=== PATIENT | male | born 1980 | race Caucasian/White ===

== ENCOUNTER → 2016-08-06 | Outpatient (CLI) | payer OTHER ==
--- NOTE | 2016-08-06 15:00 | REP ---
THORACIC SPINE SERIES: Four views. HISTORY: Back injury. FINDINGS: Thoracic vertebral body heights are preserved and alignment is normal. Pedicles and posterior elements are intact. No paravertebral soft-tissue mass or hematoma is seen. Swimmer's lateral view shows no additional abnormality. IMPRESSION: Negative thoracic spine views. Signed by Julio Shields MD 08/06/2016 03:01 P
--- NOTE | 2016-08-06 15:01 | REP ---
LUMBAR SPINE SERIES: Five views. HISTORY: Back injury. Injury in a slip and fall. No comparison views. FINDINGS: The patient is status post unilateral right-sided transpedicular screw placement at the L4 and L5 levels with dorsal interconnecting fusion vickie and an interbody fusion device placed at the 4-5 disc level. Lumbar vertebral body heights are preserved. Alignment is normal. No fracture or collapse is seen. Disc spaces are maintained. No fracture is seen. Psoas margins are symmetric. Sacrum and SI joints are unremarkable. The visualized bowel gas pattern is normal. No sacral fracture is seen. IMPRESSION: Status post for L4-5 fusion procedure. No fracture or other acute bony abnormality. Signed by Julio Shields MD 08/06/2016 03:02 P
== END ==
LOC: M LRY 13:47
PROVIDERS: ATTEND Nurse Practitioner Family
DX: S39.92XA Unspecified injury of lower back, initial encounter (principal); W19.XXXA Unspecified fall, initial encounter; Y92.9 Unspecified place or not applicable; Y93.9 Activity, unspecified; Y99.9 Unspecified external cause status; M43.26 Fusion of spine, lumbar region
CPT/HCPCS: 72070; 72110; 96372; G0463; J1885

== ENCOUNTER 2016-12-17 07:36 | Emergency (ER) | payer OTHER ==
[~2016-12-17] VITALS: Ht 175.3 cm; Wt 86.2 kg
[2016-12-17] MEDS ORDERED: TEST1VL IM (07:56)
[2016-12-17] MEDS ORDERED: KETOROLAC 30 MG/ML VIAL (J1885) IV ONE (08:45)
[2016-12-17] MEDS ORDERED: CLINDAMYCIN 900 MG in APPROPRIATE DILUENT 1 EA IV ONE (08:45)
[2016-12-17] MEDS ORDERED: NS 1,000 ML IV ONE (08:45)
[2016-12-17] MEDS ORDERED: ONDANSETRON 4MG/2ML VIAL (J2405) IV ONE (08:45)
[2016-12-17 09:19] LABS: MEAN CORPUSCULAR HEMOGLOBIN 31.2 pg (27.0-33.0); MEAN CORPUSCULAR HGB CONC 34.9 g/dl (32.0-36.5); MEAN CORPUSCULAR VOLUME 89.6 fl (80.0-96.0); PLATELET COUNT, AUTOMATED 211 k/mm3 (150-450); RED CELL DISTRIBUTION WIDTH 12.4 % (11.5-14.5); WHITE BLOOD COUNT 15.8 K/mm3 (4.0-10.0)
[2016-12-17 09:40] LABS: ALBUMIN 4.3 GM/DL (3.2-5.2); ALBUMIN/GLOBULIN RATIO 1.19 (1.00-1.93); ALKALINE PHOSPHATASE 80 U/L (45-117); ALT/SGPT 44 U/L (12-78); ANION GAP 6 MEQ/L (8-16); AST/SGOT 23 U/L (15-37); BILIRUBIN,TOTAL 1.1 MG/DL (0.2-1.0); BLOOD UREA NITROGEN 8 MG/DL (7-18); CALCIUM LEVEL 9.2 MG/DL (8.5-10.1); CARBON DIOXIDE LEVEL 28 MEQ/L (21-32); CHLORIDE LEVEL 104 MEQ/L (98-107); CREATININE FOR GFR 0.93 MG/DL (0.70-1.30); GLOMERULAR FILTRATION RATE > 60.0 (>60); GLUCOSE, FASTING 104 MG/DL (70-105); POTASSIUM SERUM 3.9 MEQ/L (3.5-5.1); SODIUM LEVEL 138 MEQ/L (136-145); TOTAL PROTEIN 7.9 GM/DL (6.4-8.2)
--- NOTE | 2016-12-17 10:01 | REP ---
Soft-tissue ultrasound left thigh. History: Erythema and edema at the injection site. Findings: Scanning of the soft tissues at the level of the lateral aspect of the thigh extending to the knee in the area of redness show some subcutaneous edema with a linear hypoechoic area at the subcutaneous fascial interface consistent with fluid. This trace amount of fluid measures 4 cm in length. No abscess collection seen. No intramuscular lesion seen. Impression: Thin layer of fluid with soft tissue edema at the subcutaneous muscle interface. No drainable collection seen. Signed by Julio Shields MD 12/17/2016 02:50 P
[2016-12-17 10:19] LABS: ERYTHROCYTE SEDIMENTATION RATE 13 mm/hr (0-15)
[2016-12-17 10:21] LABS: BASOPHILS 1 % (0-4); EOSINOPHILS 4 % (0-5)
[2016-12-17] MEDS ORDERED: CLIN1CAP5 PO (10:49)
[2016-12-17] MEDS ORDERED: IBUP80TA PO (10:49)
[2016-12-17] MEDS ORDERED: ACETAMINOPHEN 325 MG TAB PO ONE (11:00)
[2016-12-17 11:09] VITALS: BP 143/75
== END 2016-12-17 11:17 | disposition home or self-care (01) ==
LOC: M ED 08:16
DX: L03.116 Cellulitis of left lower limb (principal); Z79.899 Other long term (current) drug therapy
CPT/HCPCS: 76882; 80053; 85025; 85652; 86140; 87040; 96365; 96366; 96375; 99284; J1885; J2405

== ENCOUNTER 2016-12-18 10:28 | Emergency (ER) | payer OTHER ==
[~2016-12-18] VITALS: Ht 175.3 cm; Wt 86.6 kg
[~2016-12-18 10:28] MED LIST: CLIN1CAP5 PO; IBUP80TA PO; TEST1VL IM
[2016-12-18] MEDS ORDERED: CLINDAMYCIN 900 MG in APPROPRIATE DILUENT 1 EA IV ONE (11:00)
[2016-12-18 11:20] VITALS: BP 117/69
== END 2016-12-18 12:04 | disposition home or self-care (01) ==
LOC: M ED 11:00
DX: Z51.89 Encounter for other specified aftercare (principal); L03.116 Cellulitis of left lower limb; R89.1 Abnormal level of hormones in specimens from other organs, systems and tissues; Z79.899 Other long term (current) drug therapy

== ENCOUNTER 2017-05-27 10:05 | Emergency (ER) | payer OTHER ==
[~2017-05-27] VITALS: Ht 172.7 cm; Wt 88.5 kg
[~2017-05-27 10:05] MED LIST changes: +CLIN150C14 PO; -CLIN1CAP5 PO
[2017-05-27] MEDS ORDERED: NS 1,000 ML IV ONE (10:30)
[2017-05-27] MEDS ORDERED: dexameTHASONE 20 MG/5 ML VIAL (J1100) IV ONE (10:30)
[2017-05-27] MEDS ORDERED: MORP1TAB19 PO (10:31)
[2017-05-27 10:57] LABS: BASO # 0.1 10^3/uL (0.0-0.2); BASO % 0.5 % (0.0-1.0); EOS # 0.2 10^3/uL (0.0-0.50); EOS % 1.8 % (0.0-3.0); IMMATURE GRANULOCYTE % 0.9 % (0-0); LYMPH # 1.3 10^3/uL (1.5-4.5); LYMPH % 13.5 % (24.0-44.0); MEAN CORPUSCULAR HEMOGLOBIN 30.4 pg (27.0-33.0); MEAN CORPUSCULAR HGB CONC 34.2 g/dl (32.0-36.5); MEAN CORPUSCULAR VOLUME 88.9 fl (80.0-96.0); MONO # 1.3 10^3/uL (0.0-0.8); MONO % 13.6 % (0.0-5.0); NEUTROPHILS # 6.6 10^3/uL (1.8-7.7); NEUTROPHILS % 69.7 % (36.0-66.0); PLATELET COUNT, AUTOMATED 205 10^3/uL (150-450); RED CELL DISTRIBUTION WIDTH 12.8 % (11.5-14.5); WHITE BLOOD COUNT 9.4 10^3/uL (4.0-10.0)
[2017-05-27 11:23] LABS: ANION GAP 8 MEQ/L (8-16); BLOOD UREA NITROGEN 12 MG/DL (7-18); CALCIUM LEVEL 8.5 MG/DL (8.5-10.1); CARBON DIOXIDE LEVEL 28 MEQ/L (21-32); CHLORIDE LEVEL 104 MEQ/L (98-107); CREATININE FOR GFR 0.84 MG/DL (0.70-1.30); GLOMERULAR FILTRATION RATE > 60.0 (>60); GLUCOSE, FASTING 88 MG/DL (70-105); POTASSIUM SERUM 3.7 MEQ/L (3.5-5.1); SODIUM LEVEL 140 MEQ/L (136-145)
[2017-05-27 11:33] LABS: ALBUMIN 3.9 GM/DL (3.2-5.2); ALBUMIN/GLOBULIN RATIO 1.26 (1.00-1.93); BILIRUBIN,DIRECT 0.1 MG/DL (0.0-0.2); BILIRUBIN,TOTAL 0.5 MG/DL (0.2-1.0)
[2017-05-27 11:55] LABS: IMMUNOGLOBULIN E 4.1 IU/ML (<100)
[2017-05-27 14:14] VITALS: BP 140/87
== END 2017-05-27 14:16 | disposition home or self-care (01) ==
LOC: M ED 10:05 → EDBD 10:05 → M ED 14:16
DX: T78.3XXA Angioneurotic edema, initial encounter (principal); Y92.9 Unspecified place or not applicable; Y93.9 Activity, unspecified; Z91.09 Other allergy status, other than to drugs and biological substances; Z79.899 Other long term (current) drug therapy
CPT/HCPCS: 80048; 80076; 81001; 82785; 85025; 85652; 86140; 93041; 94760; 96361; 96374; 99284; J1100

== ENCOUNTER → 2017-12-02 | Outpatient (CLI) | payer OTHER ==
[~2017-12-02] MED LIST changes: -CLIN150C14 PO; +CONRAY-43 43% 50ML VIAL (Q9960) As Ordered; -IBUP80TA PO; +PROHANCE 279.3MG/ML 5ML VIAL (A9576) As Ordered; -TEST1VL IM
== END ==
LOC: M RADPRO 06:30
DX: M75.81 Other shoulder lesions, right shoulder (principal); S43.491A Other sprain of right shoulder joint, initial encounter; M25.511 Pain in right shoulder; Y92.89 Other specified places as the place of occurrence of the external cause; Y93.89 Activity, other specified; Y99.8 Other external cause status; X58.XXXA Exposure to other specified factors, initial encounter
CPT/HCPCS: 23350

== ENCOUNTER → 2018-05-12 | Outpatient (REF) | payer OTHER | LOC: M SFHCLERA 20:44 | DX: R53.81 Other malaise (principal) ==

== ENCOUNTER → 2018-05-12 | Outpatient (CLI) | payer OTHER | LOC: M LRY 18:44 | DX: R53.81 Other malaise (principal) | CPT/HCPCS: 87804 ==

== ENCOUNTER → 2019-02-04 | Outpatient (CLI) | payer OTHER ==
[~2019-02-04] MED LIST changes: +CLIN150C14 PO; -CONRAY-43 43% 50ML VIAL (Q9960) As Ordered; +IBUP80TA PO; +MORP1TAB19 PO; +PROHANCE 279.3MG/ML 15ML VIAL (A9576) As Ordered ONE; -PROHANCE 279.3MG/ML 5ML VIAL (A9576) As Ordered; +PROHANCE 279.3MG/ML 5ML VIAL (A9576) As Ordered ONE; +TEST1VL IM
--- NOTE | 2019-02-04 17:35 | REPVR ---
EXAM: MR Lumbar Spine Without and With Contrast. EXAM DATE/TIME: 02/04/2019 4:55 PM CLINICAL HISTORY: 38 years old, male; Lumbago and other: Spinal stenosis; Low back pain; Prior surgery; Surgery date: 6+ months; Additional info: M54.5 lbp, m48.061 lumbar spinal stenosis TECHNIQUE: Imaging protocol: Multiplanar magnetic resonance images of the lumbar spine without and with intravenous contrast. Contrast material: PROHANCE;Contrast volume: 19 ml;Contrast route: IV; COMPARISON: No relevant prior studies available. FINDINGS: Vertebrae: Status post interbody fusion of L4-L5 using right-sided transpedicular screws and metallic sideplate. Spinal cord: Normal signal. No cord compression. L1-L2: No significant disc disease. No significant spinal stenosis. L2-L3: No significant disc disease. No significant spinal stenosis. L3-L4: No significant disc disease. No significant spinal stenosis. L4-L5: Disc police detective demonstrated at L4-5. No spinal stenosis. No foraminal or lateral recess stenosis. L5-S1: Mild loss of disc height at L5-S1 with a diffusely bulging annulus. No significant central spinal stenosis. No foraminal or lateral recess stenosis. Mild bilateral facet joint arthropathy Soft tissues: Unremarkable. No abnormal enhancement. IMPRESSION: 1. Status post interbody fusion at L4-5 using right-sided transpedicular screws and metallic sideplate. Disc police detective at L4-5. 2. Mild degenerative changes at L5-S1 without spinal stenosis, lateral recess or foraminal stenosis. Bilateral facet joint arthropathy. Electronically signed by: James Lofton On 02/04/2019 17:35:30 PM
== END ==
LOC: M RAD 15:30
PROVIDERS: ATTEND Nurse Practitioner Family
DX: M54.5 Low back pain (principal); M48.061 Spinal stenosis, lumbar region without neurogenic claudication; Z98.1 Arthrodesis status
CPT/HCPCS: 72158; A9576

== ENCOUNTER 2019-08-06 17:46 | Inpatient (IN) | payer OTHER ==
[~2019-08-06] VITALS: Ht 175.3 cm; Wt 96.1 kg
[~2019-08-06 17:46] MED LIST changes: -AUGM875T28 PO; -AZIT-12 PO; -LISI10TA4 PO; -MELO15TA28 PO; -MORP-69 PO; -MUCI600T31 PO; -OXYC10TA3 PO; -TIZA4CAP PO
[2019-08-06] MEDS ORDERED: OXYC10TA3 PO (17:58)
[2019-08-06] MEDS ORDERED: MORP-69 PO (17:58)
[2019-08-06] MEDS ORDERED: LISI10TA4 PO (17:58)
[2019-08-06] MEDS ORDERED: TIZA4CAP PO (17:58)
[2019-08-06] MEDS ORDERED: MELO15TA28 PO (17:58)
[2019-08-06] MEDS ORDERED: PIPERACILLIN/TAZOBACTAM SOD 4.5 GM in D5W MINI-BAG PLUS 50 ML IV ONE (18:30)
[2019-08-06] MEDS ORDERED: MUCI600T31 PO (18:35)
[2019-08-06] MEDS ORDERED: AZIT-12 PO (18:35)
[2019-08-06] MEDS ORDERED: AUGM875T28 PO (18:35)
[2019-08-06 18:36] LABS: BASO # 0.1 10^3/uL (0.0-0.2); BASO % 0.5 % (0.0-1.0); EOS # 0.1 10^3/uL (0.0-0.5); EOS % 0.6 % (0.0-3.0); HEMATOCRIT 38.9 % (42.0-52.0); HEMOGLOBIN 13.1 g/dl (13.5-17.5); LYMPH # 1.8 10^3/uL (1.5-5.0); LYMPH % 12.9 % (24.0-44.0); MEAN CORPUSCULAR HGB CONC 33.7 g/dl (32.0-36.5); MEAN CORPUSCULAR VOLUME 89.2 fl (80.0-96.0); MONO % 14.4 % (0.0-5.0); NEUTROPHILS # 9.8 10^3/uL (1.5-8.5); PLATELET COUNT, AUTOMATED 317 10^3/uL (150-450); RED BLOOD COUNT 4.36 10^6/uL (4.30-6.10); WHITE BLOOD COUNT 13.8 10^3/uL (4.0-10.0)
[2019-08-06 19:13] LABS: ALBUMIN 3.7 GM/DL (3.2-5.2); ALT/SGPT 126 U/L (12-78); BILIRUBIN,DIRECT 0.3 MG/DL (0.0-0.2); BILIRUBIN,TOTAL 0.7 MG/DL (0.2-1.0); BLOOD UREA NITROGEN 10 MG/DL (7-18); CALCIUM LEVEL 9.1 MG/DL (8.5-10.1); CARBON DIOXIDE LEVEL 27 MEQ/L (21-32); CHLORIDE LEVEL 101 MEQ/L (98-107); CREATININE FOR GFR 0.88 MG/DL (0.70-1.30); GLOMERULAR FILTRATION RATE > 60.0 (>60); GLUCOSE, FASTING 102 MG/DL (70-100); NT-PRO BNP 26 PG/ML (<125); POTASSIUM SERUM 3.9 MEQ/L (3.5-5.1); SODIUM LEVEL 136 MEQ/L (136-145)
[2019-08-06] MEDS ORDERED: ACETAMINOPHEN TAB 650MG DOSE (2X325MG) PO PRN (21:45)
--- NOTE | 2019-08-06 22:51 | HPEPDOC ---
General Date of Admission 08/06/2019 Date of Service: Aug 06, 2019 Attending Physician: GISELA SWEET MD Chief Complaint The patient is a 39-year-old male admitted with a reason for visit of Admit From [facility]. Source: Patient, Family Exam Limitations: No limitations Timing/Duration: Day(s) Severity: Moderate Associated Symptoms: Cough, Shortness of breath History of Present Illness 39 yo man who is active in the with a history of CAP in 05/2019 that was treated to completion at [place], who presents from [place] with 2days of subjective shortness of breath and cough with bloody sputum with associated episodic sweats without noted ronit fevers, congestion, rhinorrhea, recent travel or sick contacts. He reports having been to clinic yesterday and was told that he should present to the doctor today which he did and he was given an e mpiric oral antibiotic for probable bronchitis and sent for a CXR that showed a RUL air fluid level filled mass measuring 5.4 x 7.1 x 7.2 cm c/f an abscess and was sent to [facility]. In the ED, BP was 155/84, he was afebrile, HR 88, RR 18 saturating 97% on room air. He was speaking in full sentences and breathing comfortably on room air. Work up was notable for WBC 13.8, Hgb 13.1, Hct 38.9, platelets 317, CT chest w/o contrast showing cavitary RUL mass measuring 5.8 x 5 x 5.5 without effusions or noted adenopathy, AST 50, ALT 126, normal bilis, alk phos 121, lactate 1.1, Ca 9.1. He was given a dose of pip/tazo and admitted to medicine for work up and treatment of likely lung abscess. Home Medications Scheduled Amoxicillin/Potassium Clav (Augmentin 875-125 Tablet) 1 Each Tablet, 875 MG PO BID, (Reported) FOR 10 DAYS, STARTED 08/06/19 Azithromycin (Azithromycin) 250 Mg Tablet, 250 MG PO ASDIRECTED, (Reported) 500MG ON DAY 1 THEN 250MG DAILY FOR 4 DAYS, STARTED 08/06/19 Guaifenesin (Mucinex) 600 Mg Tab.er.12h, 1,200 MG PO BID, (Reported) Lisinopril (Lisinopril) 10 Mg Tablet, 10 MG PO DAILY, (Reported) Meloxicam (Meloxicam) 15 Mg Tablet, 15 MG PO QHS, (Reported) Morphine Sulfate (Morphine Sulfate ER) 15 Mg Tablet.er, 15 MG PO Q8H, (Reported) Tizanidine HCl (Tizanidine HCl) 4 Mg Capsule, 4 MG PO QHS, (Reported) Scheduled PRN Oxycodone HCl/Acetaminophen (Oxycodone-Acetaminophen 10-325) 1 Each Tablet, 1 TAB PO BID PRN for BREAKTHROUGH PAIN, (Reported) Allergies Coded Allergies: No Known Allergies (Unverified , 12/17/16) Past Medical History Medical History HTN, chronic back pain, an episode of pneumonia in 05/2019 that was treated with antibiotics Surgical History s/p lumbar fusion surgery s/p 2 R shoulder surgeries Family History Significant Family History: No pertinent family hx Social History * Smoker: Denies Alcohol: Denies Drugs: denies Recent Travel/Sick Contacts: Denies: Recent travel, Recent sick contacts Psychosocial History: No pertinent psych hx A-FIB/CHADSVASC A-FIB History Current/History of A-Fib/PAF?: No Current PO Anticoag Therapy: No Age/Risk Factor Scoring CHADSVASC: CHADSVASC Response (Comments) Value Age Risk Factor Age < 65 years old 0 Gender Risk Factor Male 0 Hx of CHF No 0 Hx of HTN No 0 Hx of Stroke/TIA/or VTE No 0 Hx of Diabetes No 0 Hx of Vascular Disease No 0 Total 0 Treatment Treatment ordered: NONE Reason Anticoagulant not given: Not indicated/[id number] Review of Systems Constitutional: Reports: Chills, Night Sweats; Denies: Fever, Malaise, Weakness, Fatigue, Weight Loss, Lethargy Eyes: Denies: Pain, Vision change ENT: Denies: Head Aches, Ear Pain, Dysphagia Skin: Denies: Rash, Lesions, Breakdown Pulmonary: Reports: Dyspnea, Cough; Denies: Pleuritic Chest Pain Cardiovascular: Denies: Chest Pain, Palpitations, Orthopnea, Paroxysmal Noc. Dyspnea, Lt Headedness Gastrointestinal: Denies: Nausea, Vomiting, Abdominal Pain, Diarrhea Genitourinary: Denies: Dysuria, Frequency, Incontinence, Retention Hematologic: Denies: Bruising, Bleeding Excessively Endocrine: Denies: Polydipsia, Polyphagia, Polyuria, Heat Intolerance, Cold Intolerance, Other Endocrine Sx Musculoskeletal: Denies: Neck Pain, Back Pain, Joint Pain, Muscle Pain, Spasms Neurological: Denies: Weakness, Numbness, Change in speech, Confusion Psych: Reports: Mood Normal; Denies: Depression, Memory Issues Physical Examination General Exam: Positive: Alert, No Acute Distress Eye Exam: Positive: PERRLA, Conjunctiva & lids normal, EOMI; Negative: Sclera icteric ENT Exam: Positive: Atraumatic, Mucous membr. moist/pink, Pharynx Normal Neck Exam: Positive: Supple; Negative: JVD, thyromegaly, Lymphadenopathy Chest Exam: Positive: Clear to auscultation, Normal air movement; Negative: Rales, Rhonchi, Wheezing Heart Exam: Positive: Rate Normal, Regular Rhythm, Normal S1, Normal S2; Negative: Murmurs, Rubs Telemetry: Positive: No significant arrhythmia Abdomen Exam: Positive: Normal bowel sounds, Soft; Negative: Tenderness, Hepatospenomegaly Extremity Exam: Positive: Normal pulses; Negative: Clubbing, Cyanosis, Edema Skin Exam: Positive: Nl turgor and temperature; Negative: Breakdown, Lesion Neuro Exam: Positive: Normal Gait, Normal Speech, Cranial Nerves 3-12 NL, Reflexes 2+ Psych Exam: Positive: Mental status NL, Mood NL, Oriented x 3 Vital Signs Vital Signs Date Time Temp Pulse Resp B/P (MAP) Pulse Ox O2 Delivery O2 Flow Rate FiO2 08/06/19 21:31 65 95 08/06/19 21:30 125/71 (89) 08/06/19 17:47 97.5 18 Laboratory Data Labs 24H Laboratory Tests 2 08/06/19 18:27: Immature Granulocyte % (Auto) 0.6, Neutrophils (%) (Auto) 71.0H, Lymphocytes (%) (Auto) 12.9L, Monocytes (%) (Auto) 14.4H, Eosinophils (%) (Auto) 0.6, Basophils (%) (Auto) 0.5, Neutrophils # (Auto) 9.8H, Lymphocytes # (Auto) 1.8, Monocytes # (Auto) 2.0H, Eosinophils # (Auto) 0.1, Basophils # (Auto) 0.1, Nucleated Red Blood Cells % (auto) 0.0, Anion Gap 8, Glomerular Filtration Rate > 60.0, Lactic Acid Level 1.1, Calcium Level 9.1, Total Bilirubin 0.7, Direct Bilirubin 0.3H, Aspartate Amino Transf (AST/SGOT) 50H, Alanine Aminotransferase (ALT/SGPT) 126H, Alkaline Phosphatase 121H, MT-Ptr-M-Type Natriuretic Peptide 26, Total Protein 8.0, Albumin 3.7, Albumin/Globulin Ratio 0.86L, Thyroid Stimulating Hormone (T SH) 1.860 CBC/BMP Laboratory Tests 08/06/19 18:27 Microbiology Microbiology 08/06/19 Blood Culture, Received Pending 08/06/19 Respiratory Virus Panel (PCR) (DANIELLA) - Final, Complete 08/06/19 Blood Culture, Received Pending Assessment/Plan 39 yo man with a history of recent episode of CAP that was treated with antibiotics in 05/2019 with return to baseline health until a few days prior to presentation when he developed a cough with rare thick sputum that was bloody and subjective SOB that prompted presentation to his clinic with imaging now showing a RUL cavitary mass c/f abscess without noted effusions, hilar adenopathy or other areas of noted pathology. RUL cavitary mass: c/f for abscess, however given history of active , night sweats, mild hemoptysis, will send adequate work up including TB r/o -Empiric vanc/pip-tazo -MRSA PCR screen to de-escalate antibiotics -sputum culture -urine antigens -AFBs x 3 -Negative pressure airbone isolation for TB rule out -Pulmonology consulted, Dr. Fung will see him in the morning Abnormal LFTs: previous labs showed normal LFTs. No abdominal pain, no alcohol, BMI 30. -hepatitis panel -complete abdominal US -monitor for now HTN: -continue home lisinopril Chronic pain: -continue home MS contin, PRN percocet, tizanidine and meloxicam DVT ppx: TEDs Dispo: pending pulm consult, RUL lesion work up and treatment. Plan / VTE VTE Prophylaxis Ordered?: Yes GISELA SWEET MD Aug 06, 2019 22:51
--- NOTE | 2019-08-06 23:57 | REPVR ---
PROCEDURE INFORMATION: Exam: US Abdomen Complete Exam date and time: 08/06/2019 11:21 PM Age: 39 years old Clinical indication: Abnormal findings; Abnormal lab test; Elevated liver enzymes; Additional info: Abnormal lfts TECHNIQUE: Imaging protocol: Real-time ultrasound of the abdomen with image documentation. COMPARISON: No relevant prior studies available. FINDINGS: Pancreas is only partially visualized due to bowel shadowing. No overt abnormailty. Liver is diffusely echogenic, without focal lesion. No intrahepatic biliary ductal dilatation. Gallbladder shows no stone, wall thickening or pericholecystic fluid. Common bile duct is normal in caliber, measuring 4 mm. Right kidney measures 10.7 cm. No stone, mass or obstruction. Left kidney measures 11.3 cm. No stone, mass or obstruction. Spleen measures 11.1 cm. No focal splenic abnormality. Abdominal aorta is normal in caliber. No free fluid. Imaged IVC shows no intraluminal defect. IMPRESSION: Hepatic steatosis without focal lesion. Contracted gallbladder without stone, over wall thickening or biliary obstruction. Electronically signed by: Vasquez Tompkins On 08/06/2019 23:56:52 PM
[2019-08-07 01:00] VITALS: BP 121/79
[2019-08-07] MEDS: VANCOMYCIN HCL 1,000 MG, VIAL MATE ADAPTER 1 EACH in D5W 250 ML IV SCH ×4 (01:28→17:17)
[2019-08-07] MEDS: MELOXICAM (MOBIC) 7.5 MG TAB PO SCH ×2 (01:29→20:35)
[2019-08-07] MEDS: tiZANidine 4 MG TAB PO SCH ×2 (01:29→20:35)
[2019-08-07] MEDS: guaiFENesin ER 600 MG TAB PO SCH ×3 (01:29→20:35)
[2019-08-07] MEDS: MORPHINE 15 MG SA TAB PO SCH ×4 (01:30→22:25)
[2019-08-07] MEDS ORDERED: PIPERACILLIN/TAZOBACTAM SOD 4.5 GM in D5W MINI-BAG PLUS 100 ML IV SCH (02:00)
[2019-08-07] MEDS: PIPERACILLIN/TAZOBACTAM SOD 4.5 GM in D5W MINI-BAG PLUS 100 ML IV SCH ×4 (04:57→22:24)
--- NOTE | 2019-08-07 05:03 | PHACANCOPD ---
PHARMACY VANCOMYCIN DOSING Pt Demographics Demographics Patient Age:39 , Weight:96.100 , Gender: male Adjusted Body Weight Date: 08/07/19, Adjusted Body Weight: [80.24] Kg Vancomycin Vancomycin indication: RUL ABCESS Vancomycin Target Ranges: 15-20 mcg/ml Vancomycin Load Y/N: Yes Load Dose Date Time Vancomycin Load Dose: 2GM Date: 08/07 Time: 1:30/3:00AM Vancomycin Dose Date: 08/07/19. Current Vancomycin Dose: [1 GM Q8H] Intermittent Dosing?: No Labs Micro Microbiology 08/06/19 Blood Culture, Received Pending 08/06/19 Respiratory Virus Panel (PCR) (DANIELLA) - Final, Complete 08/06/19 Blood Culture, Received Pending Creatinine Clearance Date:08/07/19. Creatinine Clearance: [>100].CALCULATES ~127 Assessment and Plan Maintaining Current Dose?: Yes Reason for dose change: No Dose Change Pharmacist Note Pharmacist Note Date: 08/07/19. Pharmacist note:39 YOM Admitted after recurrent CAP / and possible RUL abcess -failure on outpatient ABX treatment w/azithromycin and Amox/Clavulanate. SCR=0.88,Calculated CRCL~127, Ht:69",WT:94.55kg,NKDA.MRSA PCR ordered. Pip/Tazo 4.5 grams Q6H and Pharmacy dosed Vancomycin have been ordered.Vancomycin 2 gram load begun on inpatient floor, then continue on a regimen of 1 gram IV L9Idepe.First trougl lenel is scheduled prior to the 1am dose on 08/07.-Will continue to follow and make adjustments as needed. [facility] Aug 07, 2019 05:03
[2019-08-07 07:16] LABS: HEMATOCRIT 34.8 % (42.0-52.0); HEMOGLOBIN 11.7 g/dl (13.5-17.5); MEAN CORPUSCULAR HEMOGLOBIN 30.1 pg (27.0-33.0); MEAN CORPUSCULAR HGB CONC 33.6 g/dl (32.0-36.5); MEAN CORPUSCULAR VOLUME 89.5 fl (80.0-96.0); PLATELET COUNT, AUTOMATED 273 10^3/uL (150-450); RED BLOOD COUNT 3.89 10^6/uL (4.30-6.10); WHITE BLOOD COUNT 9.2 10^3/uL (4.0-10.0)
[2019-08-07 07:37] LABS: BLOOD UREA NITROGEN 12 MG/DL (7-18); CARBON DIOXIDE LEVEL 31 MEQ/L (21-32); CHLORIDE LEVEL 98 MEQ/L (98-107); CREATININE FOR GFR 0.89 MG/DL (0.70-1.30); GLOMERULAR FILTRATION RATE > 60.0 (>60); GLUCOSE, FASTING 89 MG/DL (70-100); POTASSIUM SERUM 3.2 MEQ/L (3.5-5.1); SODIUM LEVEL 133 MEQ/L (136-145)
[2019-08-07 07:53] VITALS: BP 116/75
[2019-08-07] MEDS: lisinopriL 10 MG TAB PO SCH (09:09)
--- NOTE | 2019-08-07 10:21 | IPN ---
DATE: 08/07/2019 Rogelio is seen on the hospitalist service admitted with a cavitary mass right lung 5.8 cm, possible abscess. He had a recent episode of community acquired pneumonia. Denies fever, chills, cough, hemoptysis. PHYSICAL EXAMINATION: Afebrile. Vital signs stable. Lungs clear. Heart regular rhythm. Abdomen soft, nontender. No peripheral edema. CBC unremarkable. Potassium is down to 3.2 Liver function was elevated on admission. No followup liver functions ordered. IMPRESSION: 1. Cavitary mass: Waiting for Dr. Fung to formally see the patient. We discussed the case informally. He reviewed his CT. Continue antibiotic therapy for now. 2. Fatty liver: Daily liver functions have been ordered. Risk factor modification discussed. 3. Hypertension: Well controlled on current regimen. 4. Chronic pain syndrome: Will continue his chronic pain medications.
[2019-08-07] MEDS: PERCOCET 5MG/325MG TAB PO PRN ×2 (12:05→22:25)
[2019-08-07 16:00] VITALS: BP 130/79
[2019-08-07 20:00] VITALS: BP 133/77
--- NOTE | 2019-08-07 20:19 | CR ---
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 He has had 2 days of cough with bloody sputum. No gross hemoptysis. Some right-sided upper chest pain, which has now resolved. No fevers but occasional chills. He denies dyspnea. His appetite is good, and his weight has been stable. He was treated for a respiratory infection and hospitalized at [facility] in May. at that time he believes there was no change on his chest x-ray. He was given intravenous (IV) antibiotic therapy for shortness of breath and cough and sent home with oral antibiotics, which he did complete. This respiratory infection occurred 3 days after returning from a training mission at [place], [place]. He denies awareness of any direct exposure to ill contacts. His work there did not expose him to respiratory irritants. His past pulmonary history includes an occasional bout of bronchitis. Prior to May of last year he has never suffered pneumonia. He has no history of chest trauma. Has never been overcome by smoke or fumes, and there is no history of allergic asthmatic disease. 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 He went to [facility], [place] in 2002, [place] in 2009, and [place] in 2011. He recalls and describes having a purified protein derivative (PPD) study performed on return from deployment and believes that it was negative. He is a nonsmoker. Has no secondhand smoke exposure. Partakes in no uncommon hobbies that would expose him to respiratory irritants and has no unusual pets. PAST MEDICAL HISTORY: Includes hypertension and back pain. PAST SURGERIES: Lumbar fusion, right shoulder surgery. MEDICATIONS: Prior to admission to the hospital included lisinopril 10 mg daily, meloxicam 15 mg daily. ALLERGIES: He has no medication allergies. SOCIAL HISTORY: Nonsmoker. He does not take alcohol. He is accompanied in the hospital today by his supportive spouse. FAMILY HISTORY: Identifies no primary respiratory illness. REVIEW OF SYSTEMS: CONSTITUTIONAL: His appetite has been good. His weight has been stable. He has no ongoing constitutional symptoms. HEENT: He has no impairment of vision, smell, hearing, or taste. CARDIOVASCULAR: There is no history of palpitations, orthopnea, paroxysmal nocturnal dyspnea, or claudication. PULMONARY: See above. GASTROINTESTINAL: There is no history of hepatitis, pancreatitis, gallbladder disease. GENITOURINARY: No history of frequency, dysuria, or kidney stones. ENDOCRINE: There is no history of diabetes or thyroid disease known. DERMATOLOGIC: No history of psoriasis or pruritic skin lesions. HEMATOLOGIC: No easy bruising or bleeding. He has never received a blood transfusion. NEUROLOGIC: No history of stroke, seizure, or muscle weakness. MUSCULOSKELETAL: He does have chronic back pain and did have surgery remotely. He palliates his pain with use of a nonsteroidal on an as-needed basis. PHYSICAL EXAMINATION: His temperature is 97.8. He has had no temperatures above 99 during his hospitalization. His pulse rate is 63, respirations 16, blood pressure 116/75. His saturation is 100% on room air. HEENT: Oral and nasal mucosa are pink. His posterior pharynx shows no erythema. There is no stridor over the trachea. No adenopathy in the neck or supraclavicular regions. Jugular veins are flat. Carotid upstroke brisk. HEART: Sounds are regular without appreciable murmur. Breath sounds are very subtly diminished in the right upper lobe posteriorly. There are no pleural sounds. No focal adventitial breath sounds appreciated. CHEST: Symmetric. Moves symmetrically. There is no accessory muscle use at rest. ABDOMEN: Soft with intact bowel sounds. There is no mass or organomegaly. EXTREMITIES: Show no significant edema. Skin is cool and dry. Nails are not clubbed nor cyanosed. Gait and station are not tested. DIAGNOSTIC STUDIES: A chest x-ray was reviewed from April 2018, which showed no abnormalities. CT scan from this admission shows a cavitary thick-walled abscess in the right upper lobe, 5.4 x 7.1 x 7.2 cm, and no adenopathy. His white cell count is 13.8, hemoglobin 13.1, hematocrit 38.2, platelet count 317,000. Sodium is 133, potassium 3.7, chloride 98, CO2 of 31, BUN 12, creatinine 0.89, glucose 89. IMPRESSION: Cavitary right upper lobe mass. Differential diagnosis favors a cavitary bacterial pneumonia. The possibility exists of an atypical infection, such as tuberculosis or fungal infection, and remote possibility exists of lung malignancy. RECOMMENDATIONS: 1. I agree with IV antibiotics, including a penicillin product 2. I would recommend inducing sputum for acid-fast bacillus (AFB) and cytology. 3. Will maintain isolation pending at least two negative sputums for acid-fast bacillus. 4. Will obtain at [employer] Gold study to assess exposure. A negative result would be informative. 5. The patient will need followup with repeat imaging study in 4-6 weeks. Thank you for allowing me to consult in the care of your patient. There are questions, please do not hesitate to contact me.
[2019-08-08 01:00] VITALS: BP 122/74
--- NOTE | 2019-08-08 01:34 | PHACANCOPD ---
PHARMACY VANCOMYCIN DOSING Pt Demographics Demographics Patient Age:39 , Weight:96.100 , Gender: male Adjusted Body Weight Date: 08/07/19, Adjusted Body Weight: [80.24] Kg Vancomycin Vancomycin indication: RUL ABCESS Vancomycin Target Ranges: 15-20 mcg/ml Vancomycin Load Y/N: Yes Load Dose Date Time Vancomycin Load Dose: 2GM Date: 08/07 Time: 1:30/3:00AM Vancomycin Dose Date: 08/08/19. Current Vancomycin Dose: [1 GRAM Q6H] Date: 08/07/19. Current Vancomycin Dose: [1 GM Q8H] Intermittent Dosing?: No Labs Micro Microbiology 08/07/19 Gram Stain - Final, Resulted 08/07/19 Sputum Culture, Resulted Pending 08/07/19 Acid Fast Stain, Received Pending 08/07/19 Mycobacterial Culture, Received Pending 08/06/19 Blood Culture - Preliminary, Resulted No growth after 24 hours . All specim... 08/06/19 Respiratory Virus Panel (PCR) (DANIELLA) - Final, Complete 08/06/19 Blood Culture - Preliminary, Resulted No growth after 24 hours . All specim... Creatinine Clearance Date:08/07/19. Creatinine Clearance: [>100].CALCULATES ~127 Assessment and Plan Maintaining Current Dose?: No Reason for dose change: Trough too low Pharmacist Note Pharmacist Note Date: 08/08/19. Pharmacist note:Vancomycin trough drawn this evening@23:58 reported as 9.4(goal=15-20),patient SCR 0.89,CRCL remains>100 .Will administer additional 1 gram dose(total of 2 grams)tonight, then will adjust regimen to 1 gram IV [id number] to begin with 08/08 0800 dose.Next trough scheduled to be drawn 08/08@1900-Will continue to follow and make adjustments as needed. Date: 08/07/19. Pharmacist note:39 YOM Admitted after recurrent CAP / and possible RUL abcess -failure on outpatient ABX treatment w/azithromycin and Amox/Clavulanate. SCR=0.88,Calculated CRCL~127, Ht:69",WT:94.55kg,NKDA.MRSA PCR ordered. Pip/Tazo 4.5 grams Q6H and Pharmacy dosed Vancomycin have been ordered.Vancomycin 2 gram load begun on inpatient floor, then continue on a regimen of 1 gram IV [id number].First bernadette borges is scheduled prior to the 1am d ose on 08/07.-Will continue to follow and make adjustments as needed. [facility] Aug 08, 2019 01:34
[2019-08-08] MEDS: VANCOMYCIN HCL 1,000 MG, VIAL MATE ADAPTER 1 EACH in D5W 250 ML IV SCH ×4 (01:39→20:56)
[2019-08-08] MEDS ORDERED: VANCOMYCIN HCL 1,000 MG, VIAL MATE ADAPTER 1 EACH in D5W 250 ML IV ONE (02:00)
[2019-08-08] MEDS: PIPERACILLIN/TAZOBACTAM SOD 4.5 GM in D5W MINI-BAG PLUS 100 ML IV SCH ×4 (04:56→22:47)
[2019-08-08] MEDS ORDERED: SODIUM CHLORIDE HYPERTONIC 3% 15ML NEB SOL INH ONE (06:00)
[2019-08-08] MEDS: MORPHINE 15 MG SA TAB PO SCH ×3 (06:11→22:48)
[2019-08-08 07:28] LABS: HEMATOCRIT 36.2 % (42.0-52.0); HEMOGLOBIN 11.9 g/dl (13.5-17.5); MEAN CORPUSCULAR HEMOGLOBIN 29.4 pg (27.0-33.0); MEAN CORPUSCULAR HGB CONC 32.9 g/dl (32.0-36.5); MEAN CORPUSCULAR VOLUME 89.4 fl (80.0-96.0); PLATELET COUNT, AUTOMATED 317 10^3/uL (150-450); RED BLOOD COUNT 4.05 10^6/uL (4.30-6.10); WHITE BLOOD COUNT 8.1 10^3/uL (4.0-10.0)
[2019-08-08 07:50] LABS: ALBUMIN 3.1 GM/DL (3.2-5.2); ALT/SGPT 133 U/L (12-78); BILIRUBIN,TOTAL 0.5 MG/DL (0.2-1.0); BLOOD UREA NITROGEN 6 MG/DL (7-18); CALCIUM LEVEL 8.8 MG/DL (8.5-10.1); CARBON DIOXIDE LEVEL 31 MEQ/L (21-32); CHLORIDE LEVEL 104 MEQ/L (98-107); CREATININE FOR GFR 0.92 MG/DL (0.70-1.30); GLOMERULAR FILTRATION RATE > 60.0 (>60); GLUCOSE, FASTING 101 MG/DL (70-100); POTASSIUM SERUM 3.5 MEQ/L (3.5-5.1); SODIUM LEVEL 139 MEQ/L (136-145); TOTAL PROTEIN 7.7 GM/DL (6.4-8.2)
[2019-08-08 08:00] VITALS: BP 113/59
[2019-08-08] MEDS: guaiFENesin ER 600 MG TAB PO SCH ×2 (09:35→20:57)
[2019-08-08] MEDS: lisinopriL 10 MG TAB PO SCH (09:36)
[2019-08-08] MEDS: PERCOCET 5MG/325MG TAB PO PRN ×2 (13:10→20:59)
--- NOTE | 2019-08-08 14:11 | IPN ---
DATE: 08/08/2019 Rogelio feels well. No fevers. No shortness of breath. Appreciate Dr. Fung's consultation. PHYSICAL EXAM: Vital signs stable. No fever. Lungs: Clear. Heart: Regular rhythm. Abdomen: Soft, nontender. LABS: White count is down to 8.1. Electrolytes unremarkable. IMPRESSION: Lung abscess. PLAN: Continue his IV antibiotics. Waiting for sputum results to come back. Once sputum for acid-fast bacilli (AFB) and his tuberculosis (TB) Gold test come back we can take him off respirator isolation if those return negative.
[2019-08-08 16:00] VITALS: BP 146/64
[2019-08-08 20:00] VITALS: BP 149/78
[2019-08-08] MEDS: MELOXICAM (MOBIC) 7.5 MG TAB PO SCH (20:57)
[2019-08-08] MEDS: tiZANidine 4 MG TAB PO SCH (20:57)
[2019-08-09] VITALS: BP 109/58
[2019-08-09] MEDS: VANCOMYCIN HCL 1,000 MG, VIAL MATE ADAPTER 1 EACH in D5W 250 ML IV SCH ×2 (02:32→08:23)
[2019-08-09] MEDS: PIPERACILLIN/TAZOBACTAM SOD 4.5 GM in D5W MINI-BAG PLUS 100 ML IV SCH ×3 (05:44→15:59)
[2019-08-09] MEDS: MORPHINE 15 MG SA TAB PO SCH ×2 (05:44→14:40)
[2019-08-09] MEDS ORDERED: SODIUM CHLORIDE HYPERTONIC 3% 15ML NEB SOL INH ONE (06:00)
[2019-08-09 07:16] LABS: HEMATOCRIT 35.9 % (42.0-52.0); HEMOGLOBIN 11.8 g/dl (13.5-17.5); MEAN CORPUSCULAR HEMOGLOBIN 29.4 pg (27.0-33.0); MEAN CORPUSCULAR HGB CONC 32.9 g/dl (32.0-36.5); MEAN CORPUSCULAR VOLUME 89.5 fl (80.0-96.0); PLATELET COUNT, AUTOMATED 301 10^3/uL (150-450); RED BLOOD COUNT 4.01 10^6/uL (4.30-6.10); WHITE BLOOD COUNT 7.2 10^3/uL (4.0-10.0)
[2019-08-09 07:39] LABS: ALT/SGPT 121 U/L (12-78); BILIRUBIN,TOTAL 0.4 MG/DL (0.2-1.0); BLOOD UREA NITROGEN 7 MG/DL (7-18); CALCIUM LEVEL 8.8 MG/DL (8.5-10.1); CARBON DIOXIDE LEVEL 29 MEQ/L (21-32); CHLORIDE LEVEL 107 MEQ/L (98-107); CREATININE FOR GFR 0.88 MG/DL (0.70-1.30); GLOMERULAR FILTRATION RATE > 60.0 (>60); GLUCOSE, FASTING 128 MG/DL (70-100); POTASSIUM SERUM 4.1 MEQ/L (3.5-5.1); SODIUM LEVEL 140 MEQ/L (136-145); TOTAL PROTEIN 6.6 GM/DL (6.4-8.2)
[2019-08-09] MEDS: guaiFENesin ER 600 MG TAB PO SCH (08:52)
[2019-08-09 08:53] VITALS: BP 133/77
[2019-08-09] MEDS: lisinopriL 10 MG TAB PO SCH (08:53)
[2019-08-09 09:00] VITALS: BP 133/77
[2019-08-09 11:48] LABS: HEPATITIS A ANTIBODY IGM NEGATIVE (NEGATIVE); HEPATITIS B CORE ANTIBODY IGM NEGATIVE (NEGATIVE); HEPATITIS B SURFACE ANTIGEN NEGATIVE (NEGATIVE); HEPATITIS C VIRUS ABY INDEX 0.1 INDEX (<0.8)
[2019-08-09] MEDS: PERCOCET 5MG/325MG TAB PO PRN (12:14)
--- NOTE | 2019-08-09 13:33 | IPNPDOC ---
Subjective Date Seen The patient was seen on 08/09/19. Subjective Chief Complaint/HPI AMENDMENT: Patient seen by Drs. Guzman and Cecilio and the decision made to d/c with PO Augmentin for 4-6 weeks. Prescribed 6 weeks with instructions (via nursing) to follow ID instructions regarding abx therapy outpt. Per the EMR, Dr Hernandes discussed with the [facility] health dept. Health dept is OK with him going home with instructions to isolate himself pending PCR sputum results. Pt has received those instructions from Drs. Guzman and Cecilio and Dr. Hernandes has provided him with notation to that effect. Pt is to follow-up with Dr. Hernandes oupt. Admitting Diagnosis: 1. Right upper lung cavitary mass 2. Abnormal LFTs 3. HTN 4. Chronic pain Discharge Diagnosis: 1. Right upper lung cavitary mass 2. Abnormal LFTs 3. HTN 4. Chronic pain Mr. Helms is a 39 year old male admitted with a diagnosis of RUL abscess. Pt is seen sitting up in bed this morning. He is slightly annoyed and would like to go home. Although he understands that he is currently being treated with broad spectrum abx for a lung abscess, pending culture results, he states, "I want to know why I am here and what is wrong with me." He also wanted to know for how long he will continue with isolation. I have summarized the current findings and treatment plan for Mr. Helms, he verbalized his understanding, but continues to appear dissatisfied. Otherwise, he stated he feels fine, no Sx. JFW:case d/w Dr Ibarra, and KATLYN Hernandes, OK to vt, pt seen examined today General: Reports: Normal Appetite; Denies: Chills, Night Sweats, Fatigue, Malaise Constitutional: Denies: Chills, Fever, Night Sweats Eyes: Denies: Pain ENT: Denies: Head Aches Skin: Denies: Rash Pulmonary: Denies: Dyspnea, Cough Cardiovascular: Denies: Chest Pain, Palpitations, Lt Headedness Gastrointestinal: Denies: Nausea, Vomiting, Abdominal Pain Genitourinary: Denies: Dysuria, Retention Hematologic: Denies: Bruising Musculoskeletal: Denies: Neck Pain, Back Pain, Joint Pain, Muscle Pain, Spasms Neurological: Denies: Weakness, Numbness Psych: Reports: Mood Normal Objective Physical Examination General Exam: Positive: Alert, Cooperative, No Acute Distress Eye Exam: Positive: PERRLA, Conjunctiva & lids normal, EOMI; Negative: Sclera icteric ENT Exam: Positive: Atraumatic, Mucous membr. moist/pink, Pharynx Normal Neck Exam: Positive: Supple; Negative: JVD, thyromegaly, Lymphadenopathy Chest Exam: Positive: Clear to auscultation, Diminished (slightly diminished over RUL ); Negative: Normal air movement, Rales, Rhonchi, Wheezing Heart Exam: Positive: Rate Normal, Regular Rhythm, Normal S1, Normal S2; Negative: Murmurs, Rubs Telemetry: Positive: No significant arrhythmia Abdomen Exam: Positive: Normal bowel sounds, Soft, Hepatospenomegaly; Negative: Tenderness Extremity Exam: Negative: Clubbing, Cyanosis, Edema Skin Exam: Positive: Nl turgor and temperature Neuro Exam: Positive: Normal Speech, Cranial Nerves 3-12 NL Psych Exam: Positive: Mood NL Assessment /Plan Assessment "39 yo man who is active in the with a history of CAP in 05/2019 that was treated to completion at [facility], who presents from [place] with 2days of subjective shortness of breath and cough with bloody sputum with associated episodic sweats without noted ronit fevers, congestion, rhinorrhea, recent travel or sick contacts. He reports having been to clinic yesterday and was told that he should present to the doctor today which he did and he was given an empiric oral antibiotic for probable bronchitis and sent for a CXR that showed a RUL air fluid level filled mass measuring 5.4 x 7.1 x 7.2 cm c/f an abscess and was sent to [facility]. In the ED, BP was 155/84, he was afebrile, HR 88, RR 18 saturating 97% on room air. He was speaking in full sentences and breathing comfortably on room air. Work up was notable for WBC 13.8, Hgb 13.1, Hct 38.9, platelets 317, CT chest w/o contrast showing cavitary RUL mass measuring 5.8 x 5 x 5.5 without effusions or noted adenopathy, AST 50, ALT 126, normal bilis, alk phos 121, lactate 1.1, Ca 9.1. He was given a dose of pip/tazo and admitted to medicine for work up and treatment of likely lung abscess." RUL cavitary mass - possible lung abscess vs cavitary bacterial pneumonia. r/o TB, fungal infec tion or lung malignancy -Empiric vanc/pip-tazo - Leukocytosis resolved; continue per Dr. Fung until final results -MRSA PCR screen - negative -sputum culture - yeast-like organism -urine antigens - pending -AFBs x 3 - 1 negative so far -Continue negative pressure airborne isolation - until [address] Fung -Dr. Fung consulted and has provided management as noted above -Dr. Hernandes consulted as Vanc d/c following -ve MRSA; she will see the pt this afternoon and I appreciate her recommendations for further abx mgmt. Abnormal LFTs: previous labs showed normal LFTs. No abdominal pain, no alcohol, BMI 30. -hepatitis panel - negative -complete abdominal US - FLD & contracted gallbladder w/out stone over thickening or possible biliary obstruction -AST now normal; ALT very modestly improved - continue monitoring for now HTN -continue home lisinopril Chronic pain -continue home MS contin, PRN percocet, tizanidine and meloxicam Plan/VTE VTE Prophylaxis Ordered?: Yes (TEDs) VS, I&O, 24H, Fishbone Vital Signs/I&O Vital Signs Date Time Temp Pulse Resp B/P (MAP) Pulse Ox O2 Delivery O2 Flow Rate FiO2 08/09/19 09:00 97.7 59 18 133/77 (95) 100 08/09/19 00:00 Room Air I&O- Last 24 Hours up to 6 AM 08/09/19 06:00 Intake Total 4260 ml Output Total 2900 ml Balance 1360 ml Laboratory Data 24H LABS Laboratory Tests 2 08/08/19 19:15: Vancomycin Level Trough 17.4 08/09/19 07:01: Nucleated Red Blood Cells % (auto) 0.0, Anion Gap 4L, Glomerular Filtration Rate > 60.0, Calcium Level 8.8, Total Bilirubin 0.4, Aspartate Amino Transf (AST/SGOT) 28, Alanine Aminotransferase (ALT/SGPT) 121H, Alkaline Phosphatase 94, Total Protein 6.6, Albumin 3.0L, Albumin/Globulin Ratio 0.83L CBC/BMP Laboratory Tests 08/09/19 07:01 Microbiology Microbiology 08/09/19 Acid Fast Stain, Received Pending 08/09/19 Mycobacterial Culture, Received Pending 08/08/19 Acid Fast Stain - Final, Resulted 08/08/19 Mycobacterial Culture, Resulted Pending 08/07/19 Gram Stain - Final, Complete 08/07/19 Sputum Culture - Final, Complete Yeast Like Organism 08/07/19 Acid Fast Stain - Final, Resulted 08/07/19 Mycobacterial Culture, Resulted Pending 08/06/19 Blood Culture - Preliminary, Resulted No Growth after 48 hours. All Specime... 08/06/19 Respiratory Virus Panel (PCR) (DANIELLA) - Final, Complete 08/06/19 Blood Culture - Preliminary, Resulted No Growth after 48 hours. All Specime... KINGS HERNANDES PA-C Aug 09, 2019 13:33 Rogelio Lazo MD Aug 09, 2019 21:19
--- NOTE | 2019-08-09 13:47 | IPN ---
DATE: 08/09/2019 Mr. Helms feels well today. No dyspnea on exertion or shortness of breath. He still has a cough. This morning, it had trace old blood in it with surrounding mucus. No wheezing. No paroxysmal nocturnal dyspnea (PND) or orthopnea. No nausea or emesis. No new events overnight. OBJECTIVE/PHYSICAL EXAMINATION: General: Mr. Helms is lying in bed in no acute distress. He can complete full sentences. No cough at evaluation. Vital Signs: Temperature 97.7 with a T-max of 98.3, pulse 59, respiratory rate 18, blood pressure 133/77 with a MAP of 95. SPO2 100% on room air. HEENT: Anicteric. Nares: Patent bilaterally, moist mucosa. Oropharynx clear. No lesions. Moist mucosa. Neck: Supple, with without thyromegaly or masses. Trachea is midline. Lymphs: Without cervical or supraclavicular lymphadenopathy. Lungs: Symmetric excursion, good air entry. No wheeze, rhonchi or crackle on tidal excursion or forced maneuver. Normal I:E. No accessory muscle usage or retractions. Cardiovascular: Regular rate and rhythm with a normal S1-S2. No murmur, rub or gallop appreciated. Extremities: Without clubbing, cyanosis or edema. LABORATORY DATA: CBC from this morning showed a hemoglobin 11.8, hematocrit 35.9, platelet count 301,000, white blood cell count 7200. Chemistries show sodium 140, potassium 4.1, chloride 107, bicarbonate 29, anion gap 4, BUN 7, creatinine 0.9, glucose 128, calcium 8.8, total bilirubin 0.4, AST 28, ALT 121, alkaline phosphatase 94, total protein 6.6, albumin 3.0. He now has two acid fast smears are negative. His sputum just had a few yeastlike organisms. IMPRESSION: 1. Right upper lobe cavitary mass. [place] most likely a bacterial pneumonia. He has had two negative AFB smears and his QuantiFERON Gold is pending. RECOMMENDATIONS 1. At this point, I feel the patient could be changed over to an oral antibiotic. While penicillin would be ideal, he is going to need treatment for likely 4-6 weeks and the frequency of which he would need to take that particular medication would be difficult. Rather, I would recommend Augmentin twice daily. 2. I have spoken with infection control. They contacted the state and they will do a PCR tomorrow on his sputum and, if that if that is negative he can be out of isolation. Otherwise, for a culture to be negative can take up to 6 weeks, and the QuantiFERON Gold is not returned for 7-10 days. 3. On the other hand, the state has no problem with him being discharged to home as long as he does not go out in public pending the results of his PCR. 4. Will try to obtain records from his hospitalization in [place] in May. Of most interest will be the x-ray reports as well to see if he had a right lobe upper lobe process at that time. 5. In looking at the education assistant of the CT scan it appears that that lesion would be visible on chest x-ray and therefore will order a two view chest x-ray that will be beneficial to follow up as an outpatient. 6. Dr. Hernandes has now been consulted on the patient, so we will defer followup recommendations and rescanning to her. There is no reason to follow with both services. Pulmonary will sign off for now. Please recontact the pulmonary service if there are future problems or concerns. MEHREEN
[2019-08-09 14:07] LABS: BODY FLUID CULTURE Not indicated. (.); LEGIONELLA ANTIGEN URINE Negative (Negative); ORGANISM ID Not indicated. (.); SPECIMEN SOURCE Urine (.); URINE STREP PNEUMONIAE ANTIGEN Negative (Negative)
[2019-08-09 17:00] VITALS: BP 141/84
[2019-08-09] MEDS ORDERED: AUGM875T28 PO (17:30)
--- NOTE | 2019-08-09 18:43 | REP ---
CHEST, TWO VIEWS: Two views of the chest are performed and compared to prior CT 08/06/2019. Lung abscess in the right upper hemithorax medially is again noted. Left lung is clear. Heart is not enlarged. I do not see any other significant findings. Electronically Signed by Roney Mendoza MD 08/11/2019 12:13 P
--- NOTE | 2019-08-11 12:04 | CR ---
DATE OF CONSULTATION: INFECTIOUS DISEASE CONSULTATION: Asked to consult by hospitalist and pulmonary for followup on a lung abscess In a immunocompetent patient. 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 He did not have gross hemoptysis. He had some associated right upper chest and shoulder pain, which have resolved at this point. He denies having fever. He had a few chills. No shortness of breath. No nausea, vomiting, or diarrhea. His appetite has been stable. He had been in [place], [place], for a 4-week training mission and when he came back, he had a cough with shortness of breath, hypoxia, which required hospitalization at [facility]. He was hospitalized for 3 days, treated with IV Rocephin and azithromycin, and the patient was discharged home on oral Levaquin for 7 days. Patient improved until this hospitalization. He denied having a streptococcus infection. He had, in the past, a few episodes of bronchitis. He denies smoking. No smoke exposure, fume exposure. 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 After his return, he has PPDs that were all negative. PAST MEDICAL HISTORY: Hypertension and herniated disc status post lumbar fusion. PAST SURGICAL HISTORY: Lumbar fusion and right shoulder surgery. MEDICATION: - lisinopril 10 mg daily - meloxicam 15 mg daily - IV Zosyn 3.375 grams every 6 hours as needed ALLERGIES: No known drug allergies. SOCIAL HISTORY: He does not smoke or drink alcohol. He is . He lives with his and their kid. FAMILY HISTORY: Nonrevealing. REVIEW OF SYSTEMS: No nausea, vomiting, or diarrhea. His weight is stable. No fever. He has some chills but no night sweats. No dysuria, hematuria, or kidney stone. No skin lesions. He has chronic back pain, which is unchanged. PHYSICAL EXAM: He is a healthy looking gentleman in no acute distress. Temperature is 98.1, pulse 59, respirations 18, blood pressure 141/84, oxygen saturation 99% on room air. Heart: Normal S1 and S2. No murmurs, rubs, or gallops. Lungs are clear. No wheezes, rales, or rhonchi. Abdomen: Soft, nontender. No hepatosplenomegaly. Extremities: No clubbing, cyanosis, or edema. No calf tenderness. Oropharynx is clear with no thrush. Neck is supple. No jugular venous distention (JVD). No carotid bruits. No adenopathy. Back: No costovertebral angle (CVA) or lumbosacral tenderness. Healed scar from lumbar fusion on the flank area. Neurologic: Exam normal. LABS: White count on admission was 13.8; today, it was 7.2. Hemoglobin 11.8, hematocrit 35.9, platelets 301. Sodium 140, potassium 4.1, chloride 107, bicarbonate 29, BUN 7, creatinine 0.83, glucose 128, calcium 8.8, bilirubin 0.4, AST 28, ALT 121, alkaline phosphatase 94, total protein 6.6, albumin 3, procalcitonin 0.06, lactic acid 1.1, TSH 1.86. Sputum culture was negative. AFB smear has been negative 2 out of 3. The third AFB smear is not done. Blood cultures: Two sets are negative. Respiratory panel was negative. Hepatitis A, B, and C serology were negative. Urine Legionella antigen negative. MRSA screen was negative. Pneumococcal antigen was negative. 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 Interestingly, the pneumonia was bilateral bibasilar and this lung abscess is right upper lobe cavitary mass measuring 5.8 cm, which would not be at the same place as where his previous pneumonias were. Patient has responded to IV Zosyn. Hemoptysis has resolved, and his shoulder/chest pain has also resolved. The patient is anxious to go home. The differential includes a lung abscess most commonly with anaerobe and oral streptococcus. Streptococcus anginosus, less likely pneumococcus, especially with a negative urine antigen. Less likely would be tuberculosis. Patient does not have chronic symptoms, and this presentation was quite acute. His previous PPDs were negative, but QuantiFERON-TB Gold was sent and AFB smears are negative 2 out of 3. Fungal etiology less likely. PLAN: Will add to his labs an HIV test and obtain at his followup visit some fungal studies, including Aspergillus, Cryptococcus antigen antibody, Histoplasma antigen antibody. I did not realize they were not done during this hospitalization and, therefore, the patient was discharged and I could not obtain them. Add an HIV test. Discontinue IV Zosyn. Switch to Augmentin 875 mg by mouth twice a day for 6 weeks. Followup chest x-ray in the next couple weeks. Followup in my office in 2 weeks.
--- NOTE | 2019-08-25 22:07 | DS.PDOC ---
Discharge Summary General Date of Admission Aug 07, 2019 at 00:07 Date of Discharge 09/09/2019 Discharge Summary PROCEDURES PERFORMED DURING STAY: [None]. Subjective Chief Complaint/HPI AMENDMENT: Patient seen by Drs. Guzman and Cecilio and the decision made to d/c with PO Augmentin for 4-6 weeks. Prescribed 6 weeks with instructions (via nursing) to follow ID instructions regarding abx therapy outpt. Per the EMR, Dr Hernandes discussed with the [facility] health dept. Health dept is OK with him going home with instructions to isolate himself pending PCR sputum results. Pt has received those instructions from Drs. Guzman and Cecilio and Dr. Hernandes has provided him with notation to that effect. Pt is to follow-up with Dr. Hernandes oupt. Admitting Diagnosis: 1. Right upper lung cavitary mass 2. Abnormal LFTs 3. HTN 4. Chronic pain Discharge Diagnosis: 1. Right upper lung cavitary mass 2. Abnormal LFTs 3. HTN 4. Chronic pain Mr. Helms is a 39 year old male admitted with a diagnosis of RUL abscess. Pt is seen sitting up in bed this morning. He is slightly annoyed and would like to go home. Although he understands that he is currently being treated with broad spectrum abx for a lung abscess, pending culture results, he states, "I want to know why I am here and what is wrong with me." He also wanted to know for how long he will continue with isolation. I have summarized the current findings and treatment plan for Mr. Helms, he verbalized his understanding, but continues to appear dissatisfied. Otherwise, he stated he feels fine, no Sx. JFW:case d/w Dr Ibarra, and KATLYN Hernandes, OK to ma, pt seen examined today General: Reports: Normal Appetite; Denies: Chills, Night Sweats, Fatigue, Malaise Constitutional: Denies: Chills, Fever, Night Sweats Eyes: Denies: Pain ENT: Denies: Head Aches Skin: Denies: Rash Pulmonary: Denies: Dyspnea, Cough Cardiovascular: Denies: Chest Pain, Palpitations, Lt Headedness Gastrointestinal: Denies: Nausea, Vomiting, Abdominal Pain Genitourinary: Denies: Dysuria, Retention Hematologic: Denies: Bruising Musculoskeletal: Denies: Neck Pain, Back Pain, Joint Pain, Muscle Pain, Spasms Neurological: Denies: Weakness, Numbness Psych: Reports: Mood Normal Objective Physical Examination General Exam: Positive: Alert, Cooperative, No Acute Distress Eye Exam: Positive: PERRLA, Conjunctiva & lids normal, EOMI; Negative: Sclera icteric ENT Exam: Positive: Atraumatic, Mucous membr. moist/pink, Pharynx Normal Neck Exam: Positive: Supple; Negative: JVD, thyromegaly, Lymphadenopathy Chest Exam: Positive: Clear to auscultation, Diminished (slightly diminished over RUL ); Negative: Normal air movement, Rales, Rhonchi, Wheezing Heart Exam: Positive: Rate Normal, Regular Rhythm, Normal S1, Normal S2; Negative: Murmurs, Rubs Telemetry: Positive: No significant arrhythmia Abdomen Exam: Positive: Normal bowel sounds, Soft, Hepatospenomegaly; Negative: Tenderness Extremity Exam: Negative: Clubbing, Cyanosis, Edema Skin Exam: Positive: Nl turgor and temperature Neuro Exam: Positive: Normal Speech, Cranial Nerves 3-12 NL Psych Exam: Positive: Mood NL Assessment /Plan Assessment "39 yo man who is active in the with a history of CAP in 05/2019 that was treated to completion at [place], who presents from [place] with 2days of subjective shortness of breath and cough with bloody sputum with associated episodic sweats without noted ronit fevers, congestion, rhinorrhea, recent travel or sick contacts. He reports having been to clinic yesterday and was told that he should present to the doctor today which he did and he was given an empiric oral antibiotic for probable bronchitis and sent for a CXR that showed a RUL air fluid level filled mass measuring 5.4 x 7.1 x 7.2 cm c/f an abscess and was sent to [facility]. In the ED, BP was 155/84, he was afebrile, HR 88, RR 18 saturating 97% on room air. He was speaking in full sentences and breathing comfortably on room air. Work up was notable for WBC 13.8, Hgb 13.1, Hct 38.9, platelets 317, CT chest w/o contrast showing cavitary RUL mass measuring 5.8 x 5 x 5.5 without effusions or noted adenopathy, AST 50, ALT 126, normal bilis, alk phos 121, lactate 1.1, Ca 9.1. He was given a dose of pip/tazo and admitted to medicine for work up and treatment of likely lung abscess." RUL cavitary mass - possible lung abscess vs cavitary bacterial pneumonia. r/o TB, fungal infection or lung malignancy -Empiric vanc/pip-tazo - Leukocytosis resolved; continue per Dr. Fung until final results -MRSA PCR screen - negative -sputum culture - yeast-like organism -urine antigens - pending -AFBs x 3 - 1 negative so far -Continue negative pressure airborne isolation - until [address] Fung -Dr. Fung consulted and has provided management as noted above -Dr. Hernandes consulted as Vanc d/c following -ve MRSA; she will see the pt this afternoon and I appreciate her recommendations for further abx mgmt. Abnormal LFTs: previous labs showed normal LFTs. No abdominal pain, no alcohol, BMI 30. -hepatitis panel - negative -complete abdominal US - FLD & contracted gallbladder w/out stone over thickening or possible biliary obstruction -AST now normal; ALT very modestly improved - continue monitoring for now HTN -continue home lisinopril Chronic pain -continue home MS contin, PRN percocet, tizanidine and meloxicam COMPLICATIONS/CHIEF COMPLAINT: Lung Abcess. HISTORY OF PRESENT ILLNESS: "39 yo man who is active in the with a history of CAP in 05/2019 that was treated to completion at [place], who presents from [place] with 2days of subjective shortness of breath and cough with bloody sputum with associated episodic sweats without noted ronit fevers, congestion, rhinorrhea, recent travel or sick contacts. He reports having been to clinic yesterday and was told that he should present to the doctor today which he did and he was given an empiric oral antibiotic for probable bronchitis and sent for a CXR that showed a RUL air fluid level filled mass measuring 5.4 x 7.1 x 7.2 cm c/f an abscess and was sent to [facility]. In the ED, BP was 155/84, he was afebrile, HR 88, RR 18 saturating 97% on room air. He was speaking in full sentences and breathing comfortably on room air. Work up was notable for WBC 13.8, Hgb 13.1, Hct 38.9, platelets 317, CT chest w/o contrast showing cavitary RUL mass measuring 5.8 x 5 x 5.5 without effusions or noted adenopathy, AST 50, ALT 126, normal bilis, alk phos 121, lactate 1.1, Ca 9.1. He was given a dose of pip/tazo and admitted to medicine for work up and treatment of likely lung abscess." HOSPITAL COURSE: see HPI DISCHARGE MEDICATIONS: Please see below. ALLERGIES: Please see below. LABORATORY DATA: Please see below. IMAGING: see EMR ACTIVITY: [As tolerated]. DIET: As tolerate DISCHARGE PLAN: see HPI DISPOSITION: Home, Self-Care. DISCHARGE INSTRUCTIONS: 1. see HPI ITEMS TO FOLLOWUP ON ON OUTPATIENT: 1. see HPI DISCHARGE CONDITION: [Stable]. TIME SPENT ON DISCHARGE: 33 minutes Discharge Medications Scheduled Amoxicillin/Potassium Clav (Augmentin 875-125 Tablet) 1 Each Tablet, 1 TAB PO BID Guaifenesin (Mucinex) 600 Mg Tab.er.12h, 1,200 MG PO BID, (Reported) Lisinopril (Lisinopril) 10 Mg Tablet, 10 MG PO DAILY, (Reported) Meloxicam (Meloxicam) 15 Mg Tablet, 15 MG PO QHS, (Reported) Morphine Sulfate (Morphine Sulfate ER) 15 Mg Tablet.er, 15 MG PO Q8H, (Reported) Tizanidine HCl (Tizanidine HCl) 4 Mg Capsule, 4 MG PO QHS, (Reported) Scheduled PRN Oxycodone HCl/Acetaminophen (Oxycodone-Acetaminophen 10-325) 1 Each Tablet, 1 TAB PO BID PRN for BREAKTHROUGH PAIN, (Reported) Allergies Coded Allergies: No Known Allergies (Unverified , 12/17/16) KINGS HERNANDES PA-C Aug 25, 2019 22:07
== END 2019-08-09 19:10 | disposition home or self-care (01) | DRG 179 ==
LOC: M ED 17:46 → ENRESERV 23:11 → M ED INP 08-07 00:07 → M PED 08-07 00:26
PROVIDERS: ADMIT Internal Medicine; ATTEND Family Medicine
DX: J85.2 Abscess of lung without pneumonia (principal); R91.8 Other nonspecific abnormal finding of lung field; I10 Essential (primary) hypertension; G89.29 Other chronic pain; Z79.899 Other long term (current) drug therapy; R74.8 Abnormal levels of other serum enzymes; K76.0 Fatty (change of) liver, not elsewhere classified

== ENCOUNTER → 2019-08-06 | Outpatient (CLI) | payer OTHER ==
[~2019-08-06] MED LIST changes: +AUGM875T28 PO; +AZIT-12 PO; +LISI10TA4 PO; +MELO15TA28 PO; +MORP-69 PO; +MUCI600T31 PO; +OXYC10TA3 PO; -PROHANCE 279.3MG/ML 15ML VIAL (A9576) As Ordered ONE; -PROHANCE 279.3MG/ML 5ML VIAL (A9576) As Ordered ONE; +TIZA4CAP PO
--- NOTE | 2019-08-06 10:45 | REP ---
CT of the chest without IV contrast for right upper lobe lung abscess: There are no comparison studies available. There is a transcribed report of a PA and lateral plain film study dated 08/06 2019 that describes a 5.4 x 7.1 x 7.2 cm air fluid level posteriorly in the upper lobe of the right lung. There are no films to this report. There is a cavitary mass posteromedially in the right upper lobe by CT measuring 5.8 cm AP by 5.0 cm transversely by 5.5 cm craniocaudad. This is compatible with lung abscess, although other cavitary lesions such as fungal infection and neoplasm are also in the differential diagnosis. The remainder of the lung campbell are clear. There are no pleural effusions. There is no mediastinal lymphadenopathy. In the absence of IV contrast the study is insensitive for hilar lymphadenopathy. There is no axillary lymphadenopathy. The unenhanced thoracic aorta is unremarkable. Cardiac size is normal. There is no pericardial effusion. There are no pleural effusions. Upper abdomen: The visualized areas of the unenhanced liver, gallbladder, pancreas and spleen are unremarkable. The visualized portions of the adrenals are unremarkable. Impression: There is a cavitary mass posteromedially in the upper lobe of the right lung measuring up to 5.8 cm in diameter by CT. This is compatible an abscess although other cavitary lung lesions are also included in the differential. Electronically Signed by Roney Rodriguez MD 08/06/2019 10:37 A
== END ==
LOC: M RAD 09:52
PROVIDERS: ATTEND Physician Assistant Medical
DX: R91.8 Other nonspecific abnormal finding of lung field (principal)

== ENCOUNTER → 2019-08-20 | Outpatient (CLI) | payer OTHER ==
[~2019-08-20] MED LIST changes: +AUGM875T28 PO; +AZIT-12 PO; +LISI10TA4 PO; +MELO15TA28 PO; +MORP-69 PO; +MUCI600T31 PO; +OXYC10TA3 PO; +TIZA4CAP PO
--- NOTE | 2019-08-20 16:04 | REP ---
Chest x-ray: Two views. History: Right upper lobe abscess. Comparison chest x-ray August 09, 2019. Comparison chest CT study August 06, 2019. Findings: The previously noted right upper lobe cavitary opacity is much improved and barely visible on the current chest x-ray. No new infiltrate or mass is seen. Pleural angles are sharp. Heart size is normal. No significant bony abnormality is seen. Impression: Previously noted right upper lobe opacity is much improved and barely visible. Otherwise no acute disease. Electronically Signed by Julio Shields MD 08/20/2019 04:10 P
== END ==
LOC: M RAD 14:24
PROVIDERS: ATTEND Internal Medicine Infectious Disease
DX: J85.1 Abscess of lung with pneumonia (principal)